=== PATIENT | female | born 1985 | race Caucasian/White ===

== ENCOUNTER 2021-03-22 21:08 | Emergency (ER) | payer MEDICAID, SELFPAY ==
[2021-03-22 21:17] VITALS: BP 110/68; PULSE 106; RESP 18; TEMP 37.4; O2SAT 96; BMI 28.3
[2021-03-22 21:44] LABS: Add Urine Microscopic? NO; Charge for UA Resulting for Rev
[2021-03-22 21:53] LABS: Bilirubin Urine Neg (Negative); Blood Urine Neg (Negative); Glucose Urine UA Norm (Normal); Ketones Urine Negative (Negative); Leukocyte Esterase Urine Negative (Negative); Nitrate Urine Negative (Negative); Protein Urine Neg (Negative); Urine Appearance Clear (CLEAR); Urine Color Yellow (Yellow); Urobilinogen Urine Neg (Negative); pH Urine 5 (5-7)
[2021-03-22 23:24] LABS: Basophils % 0.3 %; Eosinophils # 0.2 10^3/uL (0.0-0.8); Eosinophils % 1.9 %; Hematocrit 43.3 % (37.0-47.0); Hemoglobin 14.6 g/dL (11.5-15.3); Lymphocytes # 1.4 10^3/uL (0.8-4.8); Lymphocytes % 13.6 %; Mean Corpuscular HGB Conc 33.7 g/dL (30.0-36.0); Mean Corpuscular Hemoglobin 31.6 pg (28.0-34.0); Mean Corpuscular Volume 93.7 fl (81-99); Mean Platelet Volume 10.3 fL (7.4-10.4); Monocytes # 0.7 10^3/uL (0.2-0.9); Monocytes % 6.3 %; Neutrophils # 7.92 10^3/uL (1.8-7.7); Neutrophils % 77.2 %; Nucleated Red Blood Cells % 0 %; Platelet Count 331 10^3/cmm (130-400); Red Blood Count 4.62 10^6/uL (4.1-5.3); Red Cell Distribution Width 12.1 % (12.1-15.1); White Blood Count 10.3 10^3/uL (4.0-10.0)
[2021-03-22 23:39] LABS: HCG, Serum Qual Negative (Negative)
[2021-03-22 23:48] LABS: Alanine Aminotransferase 14 U/L (0-33); Albumin Level 4.2 g/dL (3.5-5.2); Alkaline Phosphatase 51 IU/L (35-105); Anion Gap 16.8 (5-19); Aspartate Amino Transferase 12 U/L (0-32); Blood Urea Nitrogen 9 mg/dL (6-20); Calcium 8.4 mg/dL (8.5-10.5); Carbon Dioxide 21 mmol/L (22-29); Chloride 102 mmol/L (98-107); Creatinine Clr Calc Pharmacy 156.6486; Globulin 2.4 g/dL (1.3-4.6); Glomerular Filtration Rate 138.1 mL/min (90-130); Glucose 90 mg/dL (65-115); Lipase 40 U/L (13-60); Osmolality Calculated 280 mOsm/kg (285-295); Potassium 3.8 mmol/L (3.5-5.1); Sodium 136 mmol/L (136-145); Total Bilirubin 0.6 mg/dL (0.15-1.2); Total Protein 6.6 g/dL (6.6-8.7)
--- NOTE | 2021-03-22 23:50 | W.ED.ABDPA2 ---
HPI - Abdominal Pain General: Chief Complaint: Abdominal Pain Stated Complaint: ABD PAIN Time Seen by Provider: 03/22/21 22:32 Source: patient Mode of arrival: ambulatory History of Present Illness: HPI narrative: 36-year-old female states that over the last 2 to 3 days she has been having some right upper quadrant pain especially after eating she states that she ate breakfast [place] this morning at 11 and has had some right upper quadrant pain since then she states it is less and is currently a 4 out of 10 had some nausea no vomiting denies any history of any issues in the past no gallbladder issues in the past denies any fevers. Patient is resting comfortably here. Associated Symptoms: Denies chills, dysuria and fever(s) Related Data: Date of Last Menstrual Period: 02/27/21 Review of Systems Const: Denies: fever(s), chills, body aches or change in appetite Eyes: Denies: blurry vision or eye discomfort ENMT: Denies: throat pain or dental pain Card: Denies: chest pain Resp: Denies: dyspnea GI: Reports: abdominal pain : Denies: dysuria Musc: Denies: neck pain or back pain Skin/Breast: Denies: rash Neuro: Denies: headache(s) Psych: Denies: depression Huber/Lymph: Denies: easy bruising All/Imm: Denies: urticaria [facility] ED Female Reproductive History: Date of last menstrual period: 02/27/21 Physical Exam Const: COMMON NORMALS: no acute distress, patient oriented x3 and healthy appearing HENMT: COMMON NORMALS: normocephalic and atraumatic HEAD & SCALP: normocephalic and atraumatic Eye: COMMON NORMALS: Equal, round and reactive pupils present and EOMs intact bilaterally PUPIL: Yes Equal, round and reactive pupils present Neck/C-Spine: COMMON NORMALS: full ROM and supple Chest: COMMONS NORMALS: normal inspection of the chest and normal palpation of entire chest wall Resp: COMMON NORMALS: normal respiratory effort, No retractions, No use of accessory muscles and clear to auscultation bilaterally AUSCULTATION: clear to auscultation bilaterally Cardio: COMMON NORMALS: regular rate, regular rhythm and No murmurs present (Cardio) RATE: regular rate RHYTHM: regular rhythm GI: COMMON NORMALS: Normal to inspection, nondistended, normoactive bowel sounds present, Soft to palpation and no masses PALPATION: Yes Soft to palpation and Yes Tenderness to palpation present (GI) Details: RUQ Extremity: COMMON NORMALS: normal to inspection and full ROM Neuro: COMMON NORMALS: patient oriented x3, moves all extremities and no focal motor deficits Psych: COMMON NORMALS: mental status grossly normal, Normal thought process present and cooperative THOUGHT PROCESS: Normal thought process present Skin: COMMON NORMALS: no rashes or lesions noted and no wounds GENERAL SKIN EXAM: no rashes or lesions noted Course Vital Signs: Vital signs: Vital Signs Temperature 99.4 F 03/22/21 21:17 Pulse Rate 91 03/23/21 00:14 Respiratory Rate 18 03/22/21 21:17 Blood Pressure 109/62 03/23/21 00:14 Pulse Oximetry 95 03/23/21 00:14 MDM - Abdominal Pain MDM Narrative: Medical decision making narrative: Patient presents here with biliary colic from likely gallstone she has no signs of cholecystitis or choledocholithiasis. Patient's pain here is resolved exam at discharge benign no right upper quadrant tenderness patient on pain meds here follow-up with surgery she is to eat a bland diet she understands agrees to plan. She is return if she has any worsening pain. Lab Data: Labs: Lab Results 03/22/21 03/22/21 03/22/21 21:22 23:13 23:13 WBC 10.3 10^3/uL H 10 ^3/uL (4.0-10.0) RBC 4.62 10^6/uL 10^6 /uL (4.1-5.3) Hgb 14.6 g/dL g/dL (11.5-15.3) Hct 43.3 % % (37.0-47.0) MCV 93.7 fl fl (81-99) MCH 31.6 pg pg (28.0-34.0) MCHC 33.7 g/dL g/dL (30.0-36.0) RDW 12.1 % % (12.1-15.1) Plt Count 331 10^3/cmm 10^3 /cmm (130-400) MPV 10.3 fL fL (7.4-10.4) Neut % (Auto) 77.2 % % Lymph % (Auto) 13.6 % % Tate % (Auto) 6.3 % % Eos % (Auto) 1.9 % % Baso % (Auto) 0.3 % % Neut # (Auto) 7.92 10^3/uL H 10 ^3/uL (1.8-7.7) Lymph # (Auto) 1.4 10^3/uL 10^3/ uL (0.8-4.8) Tate # (Auto) 0.7 10^3/uL 10^3/ uL (0.2-0.9) Eos # (Auto) 0.2 10^3/uL 10^3/ uL (0.0-0.8) Baso # (Auto) 0.0 10^3/uL 10^3/ uL (0.0-0.1) Nucleated RBC % (a uto) 0 % % Nucleated RBCs # 0.0 /100WBC /100W BC Sodium 136 mmol/L mmol/L (136-145) Potassium 3.8 mmol/L mmol/L (3.5-5.1) Chloride 102 mmol/L mmol/L (98-107) Carbon Dioxide 21 mmol/L L mmol/ L (22-29) Anion Gap 16.8 (5-19) BUN 9 mg/dL mg/dL (6-20) Creatinine 0.5 mg/dL mg/dL (0.5-0.9) GFR Calculation 138.1 mL/min H mL /min (90-130) Glucose 90 mg/dL mg/dL (65-115) Calculated Osmolal ity 280 mOsm/kg L mOs m/kg (285-295) Calcium 8.4 mg/dL L mg/dL (8.5-10.5) Total Bilirubin 0.6 mg/dL mg/dL (0.15-1.2) AST 12 U/L U/L (0-32) ALT 14 U/L U/L (0-33) Alkaline Phosphata se 51 IU/L IU/L (35-105) Total Protein 6.6 g/dL g/dL (6.6-8.7) Albumin 4.2 g/dL g/dL (3.5-5.2) Globulin 2.4 g/dL g/dL (1.3-4.6) Lipase 40 U/L U/L (13-60) HCG, Qual Urine Color Yellow (Yellow) Urine Appearance Clear (CLEAR) Urine pH 5 (5-7) Ur Specific Gravit y 1.010 (1.005-1.030) Urine Protein Neg (Negative) Urine Glucose (UA) Norm (Normal) Urine Ketones Negative (Negative) Urine Blood Neg (Negative) Urine Nitrate Negative (Negative) Urine Bilirubin Neg (Negative) Urine Urobilinogen Neg mg/dL mg/dL (Negative) Ur Leukocyte Yana ase Negative (Negative) 03/22/21 23:13 WBC RBC Hgb Hct MCV MCH MCHC RDW Plt Count MPV Neut % (Auto) Lymph % (Auto) Tate % (Auto) Eos % (Auto) Baso % (Auto) Neut # (Auto) Lymph # (Auto) Tate # (Auto) Eos # (Auto) Baso # (Auto) Nucleated RBC % (a uto) Nucleated RBCs # Sodium Potassium Chloride Carbon Dioxide Anion Gap BUN Creatinine GFR Calculation Glucose Calculated Osmolal ity Calcium Total Bilirubin AST ALT Alkaline Phosphata se Total Protein Albumin Globulin Lipase HCG, Qual Negative (Negative) Urine Color Urine Appearance Urine pH Ur Specific Gravit y Urine Protein Urine Glucose (UA) Urine Ketones Urine Blood Urine Nitrate Urine Bilirubin Urine Urobilinogen Ur Leukocyte Yana ase Imaging Data ^: US: Attestation: I personally reviewed and interpreted this imaging study as follows: My impression: Cholelithiasis with no signs of cholecystitis common bile duct normal Discharge Plan Discharge Patient Disposition: Home Clinical Impression: Cholelithiasis Qualifiers: Cholelithiasis location: gallbladder Cholecystitis presence: without cholecystitis Biliary obstruction: without biliary obstruction Qualified Code(s): K80.20 - Calculus of gallbladder without cholecystitis without obstruction Condition: Stable Prescriptions: New hydrocodone-acetaminophen 5-325 mg tablet 1 tab PO Q6H PRN (Reason: pain) Qty: 14 RF: 0 ondansetron 4 mg tablet,disintegrating 4 mg PO Q6H PRN (Reason: nausea and vomiting) Qty: 14 RF: 0 Discharge Orders: Discharge ED (Routine); Ordered 03/23/21 Ordered By: Anju Donnelly Referrals: Brenden Pino MD [Physician] - 1-3 days Discharge Diet: Advance as tolerated Discharge Activity: Resume usual activity Patient Instructions: Biliary Colic (ED), Gallstones (ED), Opioid Safety Coding Level of Care Code ED Assistant Hall Director for Chg Fwd Exam Comprehensive
[2021-03-23] MEDS: ondansetron 2 mg/ML SDV 2 mL 4 MG IVP (00:04)
[2021-03-23] MEDS: morphine 4 mg/mL SDV 1 mL IVP (00:04)
[2021-03-23] MEDS: tetanus-dipt-pertussis 0.5 mL SDV IM (00:13)
[2021-03-23 00:14] VITALS: BP 109/62; PULSE 91; O2SAT 95
[2021-03-23 01:11] VITALS: BP 102/53; PULSE 71; RESP 16; O2SAT 96
--- NOTE | 2021-03-23 23:48 | USR_ITS ---
PROCEDURE INFORMATION: Exam: US Abdomen, Limited; Right Upper Quadrant Exam date and time: 03/23/2021 11:48 PM Age: 36 years old Clinical indication: Abdominal pain; Additional info: Ruq pain TECHNIQUE: Imaging protocol: US abdomen. Real time ultrasound with image documentation. Limited exam focused on the right upper quadrant. COMPARISON: No relevant prior studies available. FINDINGS: Liver: Essentially unremarkable liver, no focal abnormality. Gallbladder: A 14 mm shadowing gallstone is visible within the gallbladder. No gallbladder wall thickening or pericholecystic fluid. The gallbladder does not appear abnormally distended at this time. Common bile duct: No biliary dilation, common duct measures 3.7 mm. Pancreas: Visible pancreas unremarkable. Right kidney: Images of the right kidney show no hydronephrosis. US/US gall bladder 64128 IMPRESSION: 1. Cholelithiasis, see additional details above. 2. No biliary tree dilation. 3. Other findings discussed above.
--- NOTE | 2021-03-24 11:46 | DCPLANNER ---
manager entry had message to schedule a follow up appointment for patient with general surgery. manager entry emailed patients information to Greer at [facility] General Surgery / ENT clinic. Patients information will be printed and reviewed. Clinic will call patient with appointment information.
--- NOTE | 2021-03-25 08:23 | DCPLANNER ---
Addendum entered by Evi Martinez 05/06/21 15:42: Patient had a follow up appointment scheduled for 04.13.21 with general surgery - patient did attend appointment. Original Note: Patient has a follow up appointment scheduled for Tuesday, April 13, 2021 at 8:[address] Pino at General Surgery. Clinic will call patient with appointment information.
== END 2021-03-23 01:12 | disposition home or self-care (01) ==
PROVIDERS: Emergency Provider Emergency Medicine
DX: K80.20 Calculus of gallbladder without cholecystitis without obstruction (principal); Z23 Encounter for immunization
CPT/HCPCS: 36415; 76705; 80053; 81003; 83690; 84703; 85025; 90471; 90715; 96374; 96375; 99284; J2270; J2405

== ENCOUNTER → 2021-04-13 09:34 | Outpatient (BNVA) | payer MEDICAID, SELFPAY | PROVIDERS: Visit Provider Surgery | DX: Z11.52 Encounter for screening for COVID-19 (principal); Z20.822 Contact with and (suspected) exposure to COVID-19 | CPT/HCPCS: 87635 ==

== ENCOUNTER 2021-04-19 08:31 | Day surgery (SDC) | payer MEDICAID, SELFPAY ==
[2021-04-18 13:09] VITALS: BMI 28.3
[2021-04-19] VITALS (19 sets, daily range): BP systolic 94–121; BP diastolic 67–82; PULSE 60–97; RESP 12–24; TEMP 36.3–37.1; O2SAT 91–99
[2021-04-19] MEDS: sodium chloride 0.9% 1,000 ML 30 ML IV (09:19)
[2021-04-19] MEDS: acetaminophen 1,000 MG/100 ML PIGGYBACK 400 MG IV (09:19)
--- NOTE | 2021-04-19 09:48 | W.PM.OPSUD ---
Surgery/Procedure H&P Update DATE OF PROCEDURE: April 19, 2021 DATE H&P PERFORMED: 04/13/20 H&P UPDATE INFORMATION: I have reviewed H&P completed within last 30 days, I have examined patient prior to procedure and No changes to prior documentation PREOP DIAGNOSIS: Symptomatic cholelithiasis and diarrhea PRIMARY INDICATION FOR PROCEDURE: The same PLANNED PROCEDURE: Operation Date: 04/19/21 09:50 Proposed Procedures p Laparoscopic Cholecystectomy 56503; k82.9(Not Applicable) - Brenden Pino MD s EGD(Not Applicable) - Brenden Pino MD
--- NOTE | 2021-04-19 09:48 | ANES.PREANE2 ---
Pre-Anesthetic Assessment Pre-Anesthetic Assessment: Height/Weight: Height 1.65 m Weight 77.111 kg Temp Pulse Resp BP Pulse Ox 98.3 F 93 16 112/75 97 04/19/21 08:44 04/19/21 08:44 04/19/21 08:44 04/19/21 08:44 04/19/21 08:44 Preop Diagnosis: Symptomatic cholelithiasis and diarrhea Proposed Procedure: Operation Date: 04/19/21 09:50 Proposed Procedures p Laparoscopic Cholecystectomy 87770; k82.9(Not Applicable) - Brenden Pino MD s EGD(Not Applicable) - Brenden Pino MD Familial anesthetic complications: None Was Beta Lisa taken within 24 hours: N/A Last intake: Intake Last Liquid Date 04/18/21 Last Liquid Time 22:00 Last Solid Date 04/18/21 Last Solid Time 22:00 Social: Social History: Tobacco Exam: Pre-Anes Outpt Exam: alert, oriented x 3, clear to auscultation bilaterally and regular rate & rhythm Airway: Submandibular: WNL Cervical ROM: WNL MP: 2 Dentition: Full History/ROS: No significant history except as noted Pulmonary: Pulmonary: None reported CV/HEM: CV/HEM: None reported : : None reported GI: GI: GERD Comments: Cholelithiasis Metabolic: Metabolic: None reported Musc/skel: Musc/skel: None reported Neuropsych: Neuropsych: None reported Anesthetic Plan: ASA status: 2 Anesthesia: Anesthesia Evaluation and General Other: I discussed risk benefits of GETA. Patient desire to quit smoking. I conducted a brief goal based tobacco cessation intervention with the patient. Risk of > 500 ml blood loss (7ml/kg in children): No Other Pertinent Information: Very anxious today. Meds/Allergies Current Medications: Current Medications Generic Name Dose Route Start Last Admin Trade Name Freq PRN Reason Stop Dose Admin Sodium Chloride 1,000 mls @ 30 ml s/hr 04/19/21 08:45 04/19/21 09:19 Sodium Chloride 0.9% IV 04/20/21 08:44 30 mls/hr .Q24H CASSIE Administration PFSH Anesthesia PFSH: Family History Other CAD (coronary artery disease) Cancer Dementia Diabetes Lung disease Stroke Denies family history of Chronic kidney disease (CKD) Social History Smoking and tobacco status: current every day smoker Alcohol intake: current Alcohol intake frequency: few times a week Lives independently: Yes Household members: children Female Reproductive History: Date of last menstrual period: 05/03/20 Data Anesthesia Cardiac Studies: No Data to Display
[2021-04-19] MEDS: scopolamine 1.5 Patch 1 PATCH TRANSDERMA (09:55)
[2021-04-19] MEDS: ampicillin-sulbactam 3 GM in sodium chloride 0.9% (plus) 50 ML IV (10:11)
[2021-04-19] MEDS: lidocaine 2% INJ 20 mL INJECTION (10:42)
--- NOTE | 2021-04-19 11:23 | P.OP_ITS ---
Operative Report Date of procedure: April 19, 2021 Pre-op Diagnosis: Symptomatic cholelithiasis and diarrhea Post-op diagnosis: same Procedure Done: 1-Laparoscopic cholecystectomy 2-Intraoperative esophagogastroduodenoscopy Implants: 2 pieces of Surgicel in the gallbladder fossa Specimens removed/disposition: Gallbladder and contents Surgeon: Brenedn Pino [place] Administrator: Fibrous Wallboard Inspector Jose Manuel Sánchez and Leonid mooney Mason and Meena Anesthesia: General (ANGELINA Cano) IV fluids (mL): 1,000 Complications: No immediate complication Condition: stable Disposition: same day Procedure: Patient was identified in the holding area and taken back to the operative suite, placed in supine position intubated by anesthesia. Time-out was done verifying the patient's name/date of /planned procedure and destination after the procedure, all were in agreement. SCDs confirmed to be functioning, preoperative antibiotics administered per protocol, and beta eryn protocol was confirmed. Patient was appropriately secured to the table, footboard was applied to the OR table, before prep and drape anesthesia was asked to tilt the table back and forth to make sure that the patient is appropriately secured and she was. Prep and drape of the abdomen was done under the usual sterile technique, followed by that supraumbilical skin incision,skin incision was done by a 15 blade knife, and stay sutures were applied to the fascia and Campos trocar technique was used to enter the abdominal without injuring any abdominal viscera, started by low flow gas insufflation followed by a high flow, started with a 10 mm laparoscope and under direct vision there was no evidence of any injuries, the scope then switched to a 30? ,10 millimeter scope and under direct visualization 5 millimeter trocar was inserted in the epigastric region followed by two 5 mm trocars were inserted in the right upper quadrant that was done after injection of local lidocaine 2% at all incision sites. Gallbladder showed chronic cholecystitis and Fatty Liver Patient was then positioned in the head up and tilted to the left. Ratcheted forceps were introduced into the lateral most 5mm port and was applied unto the fundus of the gallbladder cephalad and using Bullet forceps the infundibulum of the gallbladder was retracted laterally. Using [place] forceps then L-hook cautery to dissect the peritoneum overlying the Calot's triangle which was then opened medially and laterally until the cystic duct and the cystic artery were skeletonized. Dissection was carried along the body of the gallbladder and after ensuring critical view of safety was identfied. Cystic duct and cystic artery where seen connected to the gallbladder. Clips were applied on the cystic duct towards the common bile duct 1 towards the gallbladder then divided is in sharp scissors, 2 clips were then applied onto the cystic artery and 1 towards the gallbladder and divided by sharp scissors. There was an additional vessel that was clipped and divided Dissection was then carried along of the gallbladder from the gallbladder fossa using cautery as well as sharp dissection with heat energy. The gallbladder then was dissected out from the gallbladder fossa totally , cholecystectomy was then achieved and was placed in an Endo Catch bag and then retrieved from the Campos trocar site under direct visualization using a 5 mm 30? scope through the epigastric trocar, specimen was then passed to the circulating nurse to go for permanent pathology,irrigation and hemostasis was done to the gallbladder fossa after hemostasis was secured by 2 pieces of Surgicel at the gallbladder fossa, a survey laparoscopy was done that showed no injuries. Suction irrigation was obtained. While the patient is still under anesthesia ,I scrubbed out and started introducing the EGD via the mouth under direct visualization.I was able to assess the esophagus stomach and duodenum till the second part, mild GERD was noticed at the GE junction in addition to a hiatal hernia. GE junction at 40 cm from the incisors, with mild GERD the remaining of the examination was unremarkable. The scope was retrieved under direct visualization and gas was deflated,no biopsies were obtained at that point. The procedure was done under the laparo endoscopic view Afterwards I scrubbed back in.The supraumbilical fascial defect was then closed using interrupted number one PDS sutures using a fascial closure device ;Krishna Avila under direct visualization.A final Survery Laproscopy showed no evience of injuries or bleeding. Following that Gas was allowed to deflate,Trocars were then taken out under direct vision there was no evidence of bleeding. Specimen was passed to the circulating nurse for permanent pathology. No drains were placed and the supraumbilical incision as well as all trocar sites were closed by 3/0 Vicryl followed by 4-0 Monocryl to approximate the skin edges of the incisions , dressing was applied in the form of surical glue and the patient patient got extubated and was taken to recovery area in a stable condition. Count of sponges,needles and instruments were completed at the end of the procedure I was present for the whole entire procedure.
[2021-04-19] MEDS: fentaNYL 50 mcg/mL INJ 2mL IVP ×2 (11:54→12:02)
[2021-04-19] MEDS: HYDROmorphone 1 mg/mL INJ 1 mL 0.5 MG IVP (12:28)
[2021-04-19 12:31] LABS: OR HCG Qualitative Urine Negative (Negative)
[2021-04-19] MEDS: HYDROcodone-acetaminophen 5-325 mg Tablet 1 TAB PO (12:54)
--- NOTE | 2021-04-19 15:38 | ANE.PACU2 ---
Inpatient post-anesthesia follow up: Airway intact: Yes Vital signs: Temperature 98.8 F Pulse Rate 76 Respiratory Rate 16 Blood Pressure 94/78 Pulse Oximetry 95 Oxygen Delivery Me thod Room Air Oxygen Flow Rate 4 Fraction of Inspir ed Oxygen Hydration adequate: Yes Nausea and vomiting: No Pain level: 5 Mental status: Baseline
== END 2021-04-19 13:57 | disposition home or self-care (01) ==
PROVIDERS: Anesthesiology; Visit Provider Surgery
PROC: 0FT44ZZ Resection of Gallbladder, Percutaneous Endoscopic Approach (ICD-10-PCS; CPT 47562; principal; 2021-04-19 09:40)
PROC: 0DJ08ZZ Inspection of Upper Intestinal Tract, Via Natural or Artificial Opening Endoscopic (ICD-10-PCS; CPT 43235; 2021-04-19 09:40)
DX: K80.10 Calculus of gallbladder with chronic cholecystitis without obstruction (principal); K21.9 Gastro-esophageal reflux disease without esophagitis; K44.9 Diaphragmatic hernia without obstruction or gangrene; Z82.49 Family history of ischemic heart disease and other diseases of the circulatory system; Z82.3 Family history of stroke; Z83.3 Family history of diabetes mellitus; F17.210 Nicotine dependence, cigarettes, uncomplicated
CPT/HCPCS: 43235; 47562; 81025; 84703; 88304; J0295; J1100; J1170; J2001; J2250; J2405; J2704; J2710; J3010; J3490; J7030

== ENCOUNTER 2021-08-11 08:27 | Day surgery (SDC) | payer MEDICAID, SELFPAY ==
[2021-08-09 09:43] VITALS: BMI 27.4
[2021-08-11 08:39] VITALS: BP 113/67; PULSE 70; RESP 18; TEMP 36.2; O2SAT 98
--- NOTE | 2021-08-11 08:54 | P.ANESASSM_ITS ---
Pre-Anesthetic Assessment Height/Weight: Height 1.65 m Weight 74.843 kg Temp Pulse Resp BP Pulse Ox 97.2 F L 70 18 113/67 98 08/11/21 08:39 08/11/21 08:39 08/11/21 08:39 08/11/21 08:39 08/11/21 08:39 Preop Diagnosis: Bloody diarrhea Operation Date: 08/11/21 10:00 Proposed Procedures p Colonoscopy 46422/change in bowl habit R19.4/K92.1(Not Applicable) - Brenden Pino MD Familial anesthetic complications: little hard to wake up Was Beta Lisa taken within 24 hours: N/A Was Clonidine taken within 24 hours: N/A Last intake: Intake Last Liquid Date 08/10/21 Last Liquid Time 23:00 Last Solid Date 08/09/21 Last Solid Time 20:00 Social Tobacco and No alcohol Exam alert, oriented x 3, clear to auscultation bilaterally and regular rate & rhythm Airway Mallampati: Class III Dentition: chipped Pulmonary None reported CV/HEM patient states she has heart murmur from a leaky valve - able to achieve 4 METS, has had no symptoms None reported Hepatic None reported GI Gastroesophageal Reflux Disease Metabolic None reported Musc/skel None reported Neuropsych None reported Anesthetic Plan ASA status: 2 Anesthesia: MAC Risk of > 500 ml blood loss (7ml/kg in children): No Medications/Allergies Home Medications Medication Instructions Recorded Confirmed Last Taken Type hydroxyzine HCl 25 mg tablet 25 mg PO PRN PRN 04/19/21 08/11/21 08/09/21 History pantoprazole 40 mg tablet,delayed 40 mg PO DAILY 30 Days #30 tab 04/19/2108/09/21 Rx release (Protonix) cyclobenzaprine 10 mg tablet 10 mg PO TID PRN #20 tab 05/04/21 08/11/21 08/06/21 Rx etonogestrel 0.12 mg-ethinyl 1 vag ring VAGINAL DIRECTED 08/09/21 08/09/21 08/05/21 History estradiol 0.015 mg/24 hr vaginal ring (NuvaRing) magnesium 500 mg tablet 500 mg PO DAILY 08/09/21 08/11/21 08/09/21 History zinc 50 mg capsule 50 mg PO DAILY 05/06/2808/11/21 08/09/21 History Probiotic PO DAILY 08/11/21 08/09/21 History Allergies Allergy/AdvReac Type Severity Reaction Status Date / Time hydrocodone Allergy Severe itching, Verified 08/11/21 08:49 hives mushroom Allergy ALGY-Anaphy Verified 08/11/21 08:49 laxis [facility] Anesthesia Medical History (Updated 06/17/21 @ 13:00 by Brenden Pino MD) Acid reflux Cholelithiasis Postop check Family History Other CAD (coronary artery disease) Cancer Dementia Diabetes Lung disease Stroke Denies family history of Chronic kidney disease (CKD) Social History Smoking and tobacco status: current every day smoker Alcohol intake: current Alcohol intake frequency: few times a week Lives independently: Yes Household members: children Female Reproductive History Date of last menstrual period: 05/03/20 Data Anesthesia Cardiac Studies: No Data to Display
[2021-08-11] MEDS: sodium chloride 0.9% 1,000 ML 30 ML IV (09:09)
[2021-08-11 09:15] LABS: OR HCG Qualitative Urine Negative (Negative)
--- NOTE | 2021-08-11 10:35 | W.PM.OPSFHP ---
Same Day Surgery H&P Indication for Procedure/HPI DATE OF PROCEDURE: August 11, 2021 CHIEF COMPLAINT/INDICATIONFOR SURGICAL PROCEDURE: Blood in stool with diarrhea PREOP DIAGNOSIS: Bloody diarrhea PLANNED PROCEDURE: Operation Date: 08/11/21 10:00 Proposed Procedures p Colonoscopy 66049/change in bowl habit R19.4/K92.1(Not Applicable) - Brenden Pino MD This is a pleasant 36 years old female patient comes today with bloody diarrhea ROS All systems have been reviewed negative except as for the above or per problem list. Medications/Allergies* Home Medications Medication Instructions Recorded Confirmed Type hydroxyzine HCl 25 mg tablet 25 mg PO PRN PRN 04/19/21 08/11/21 History etonogestrel 0.12 mg-ethinyl 1 vag ring VAGINAL DIRECTED 08/09/21 08/09/21 History estradiol 0.015 mg/24 hr vaginal ring (NuvaRing) magnesium 500 mg tablet 500 mg PO DAILY 08/09/21 08/11/21 History zinc 50 mg capsule 50 mg PO DAILY 08/09/21 08/11/21 History Probiotic PO DAILY 08/11/21 History Allergies/Adverse Reactions Allergy/AdvReac Type Severity Reaction Status Date / Time hydrocodone Allergy Severe itching, Verified 08/11/21 10:36 hives mushroom Allergy ALGY-Anaphy Verified 08/11/21 10:36 laxis Current Medications: Generic Name Dose Route Start Last Admin Trade Name Freq PRN Reason Stop Dose Admin Sodium Chloride 1,000 mls @ 30 mls/hr 08/11/21 08:45 08/11/21 09:09 Sodium Chloride 0.9% IV 08/12/21 08:44 30 mls/hr .Q24H CASSIE Administration Pertinent History/Comorbid Conditions* Medical History (Updated 06/17/21 @ 13:00 by Brenden Pino MD) Acid reflux Cholelithiasis Postop check Family History (Updated 04/13/21 @ 09:08 by Taylor Winter) Diabetes CAD (coronary artery disease) Dementia Lung disease Cancer Stroke Denies family history of Chronic kidney disease (CKD) Social History Smoking and tobacco status: current every day smoker Alcohol intake: current Alcohol intake frequency: few times a week Lives independently: Yes Household members: children Pertinent Exam Findings alert, oriented x 3, regular rate & rhythm and procedure specific exam findings (Abdominal exam nontender nondistended soft) Recommendations Surgery/Procedure today (Colonoscopy with possible biopsy) Coding Level of Care Code Acute Power Transmission Engineer for Cathi Maria
[2021-08-11 11:24] VITALS: BP 114/69; PULSE 75; RESP 20; TEMP 36.6; O2SAT 97
[2021-08-11 11:32] VITALS: BP 109/76; PULSE 67; RESP 18; O2SAT 100
== END 2021-08-11 11:49 | disposition home or self-care (01) ==
PROVIDERS: Anesthesiology; Visit Provider Surgery
PROC: 0DJD8ZZ Inspection of Lower Intestinal Tract, Via Natural or Artificial Opening Endoscopic (ICD-10-PCS; CPT 45378; principal; 2021-08-11 10:00)
DX: K92.1 Melena (principal); D12.4 Benign neoplasm of descending colon; K21.9 Gastro-esophageal reflux disease without esophagitis; F17.210 Nicotine dependence, cigarettes, uncomplicated
CPT/HCPCS: 45380; 82274; 83630; 84703; 87493; 87506; 88305; J2704; J7030

== ENCOUNTER → 2021-08-18 15:39 | Outpatient (BNVA) | payer MEDICAID, SELFPAY | PROVIDERS: Visit Provider Surgery | DX: Z09 Encounter for follow-up examination after completed treatment for conditions other than malignant neoplasm (principal); K63.5 Polyp of colon | CPT/HCPCS: 99213 ==

== ENCOUNTER 2022-04-26 08:14 | Outpatient (CLI) | payer MEDICAID, SELFPAY ==
--- NOTE | 2022-04-26 | CT_ITS ---
WS: [id number] CT ABDOMEN AND PELVIS WITH CONTRAST HISTORY: Left-sided abdominal pain. Pain off and on for one year. TECHNIQUE: Imaging performed of the abdomen and pelvis with IV contrast. Single phase imaging of the abdomen. Coronal and sagittal reformats are submitted. All CT scans at [facility] use at [address] one of these dose optimization techniques: automated exposure control; mA and/or kV adjustment per patient size (includes targeted exams where dose is matched to clinical indication); or iterative re construction. IV CONTRAST: Omnipaque 350; 95 mL IV. Oral contrast: Yes. DLP: 689 mGy-cm. COMPARISON: No similar studies. Lower thorax: Lung bases are clear. Heart is normal size. No hiatal hernia. Liver/biliary system: Normal size with no intrahepatic dilatation. Gallbladder: Status post cholecystectomy. Pancreas: Normal size pancreas and pancreatic duct. No adjacent inflammation. Spleen: Normal size spleen. No mass or infarct. Adrenal glands: Normal. Right kidney: Normal. Left kidney: Normal. Aorta: Normal. Lymphadenopathy: None. Free fluid: None. GI tract: Normal stomach. No small bowel obstruction. The appendix is not identified. No secondary fi ndings of appendicitis. No diverticulosis. Abdominal wall: Fat-containing ventral abdominal wall hernia. Pelvis: No free fluid or adenopathy. Uterus is anteverted. Both ovaries are identified. Small follicl e LEFT ovary measures 2.1 cm. Bones: Mild disc space narrowing at L5-S1. CT/CT abdomen pelvis w con* [id number] IMPRESSION: 1. No acute abdominal or pelvic abnormalities. 2. Prior cholecystectomy. 3. No adenopathy or ascites. 4. The appendix is not identified but no secondary findings of appendicitis.
--- NOTE | 2022-04-26 08:21 | CT_ITS ---
WS: [id number] CT HEAD TECHNIQUE: Noncontrast and contrast-enhanced CT of the head. CLINICAL INFORMATION: RECURRENT HEADACHE COMPARISON: None. DLP: 3286.[address] scans at [facility] use at least one of these dose optimization techniques: automated e xposure control; mA and/or kV adjustment per patient size (includes targeted exams where dose is matc hed to clinical indication); or iterative reconstruction. FINDINGS: No evidence of intracranial hemorrhage or mass effect. Ventricular system and basal cisterns are patel nt. Normal chakraborty-white differentiation. No hydrocephalus. No extra-axial fluid collections. No abnormal intracranial enhancement. Mastoid air cells and paranasal sinuses are well aerated. Keila l posterior nasopharynx. Normal parapharyngeal fat. CT/CT head wo/w con [id number] IMPRESSION: 1. No evidence of intracranial hemorrhage or mass effect. 2. No abnormal intracranial enhancement. 3. No acute intracranial findings.
[2022-04-26] MEDS: iohexol 350 mg/mL 500 mL Btl (per mL) IV (10:36)
[2022-04-26] MEDS: iohexol 350 mg/mL 500 mL Btl (per mL) PO (10:45)
== END 2022-04-26 08:15 | disposition home or self-care (01) ==
PROVIDERS: PCP Family Medicine; Visit Provider Family Medicine
DX: R10.9 Unspecified abdominal pain (principal); R51.9 Headache, unspecified
CPT/HCPCS: 70470; 74177; Q0163; Q9967

== ENCOUNTER 2022-04-26 10:28 | Emergency (ER) | payer MEDICAID, SELFPAY ==
[2022-04-26 10:31] VITALS: BP 120/86; PULSE 71; RESP 16; TEMP 36.9; O2SAT 97; BMI 29.1
--- NOTE | 2022-04-26 10:34 | W.ED.ALLEREA ---
HPI - Allergic Reaction General: Chief complaint: Allergic Reaction Stated complaint: Allergic Reaction Time Seen by Provider: 04/26/22 10:33 Source: patient Mode of arrival: ambulatory Limitations: no limitations History of Present Illness: HPI narrative: Patient is a 37-year-old female who presents to ED today with a possible allergic reaction following IV contrast abdominal CT scan. Patient states she was having a CT scan performed as an outpatient. Following the scan she began developing throat itching and the sensation that her tongue/mouth was swelling so was brought to the ED for further evaluation. Patient states she has had IV contrast previously without allergic reaction. MD complaint: allergic reaction Onset (ago): hour(s) Exposure: other (possible IV contrast) Associated symptoms: Deny nausea or vomiting Severity: mild Treatment prior to arrival: none Previous Allergic Reaction History: none Review of Systems Const: Denies: fever(s) Eyes: Denies: change in vision ENMT: Reports: other (throat itching, feeling like it is swelling); Denies: throat pain or odynophagia Card: Denies: chest pain, palpitations, lightheadedness, syncope or pre-syncope Resp: Denies: dyspnea GI: Denies: nausea or vomiting Skin/Breast: Denies: rash Neuro: Denies: headache(s) PFSH ED PFSH: Medical History Acid reflux Cholelithiasis Colon polyp Postop check Family History Other CAD (coronary artery disease) Cancer Dementia Diabetes Lung disease Stroke Denies family history of Chronic kidney disease (CKD) Social History Smoking and tobacco status: current every day smoker Alcohol intake: current Alcohol intake frequency: few times a week Lives independently: Yes Household members: children Female Reproductive History: Date of last menstrual period: 05/03/20 Physical Exam Const: COMMON NORMALS: no acute distress, average body habitus, no limitations, healthy appearing, alert and well nourished GENERAL APPEARANCE: cooperative ORIENTATION/CONSCIOUSNESS: Yes awake, Yes oriented to person, Yes oriented to place and Yes oriented to time HENMT: COMMON NORMALS: normocephalic and atraumatic HEAD & SCALP: normal to inspection, normocephalic and atraumatic FACE & SINUS: normal facial exam MOUTH: Normal oral and palatal mucosa present, lip normal and tongue normal THROAT: posterior oropharynx normal, tonsils normal, uvula midline and other (no angioedema) Eye: GENERAL EYE: appearance normal, both eyes and all related structures Neck/C-Spine: GENERAL: Yes normal visual inspection, No anterior neck swelling and No submandibular swelling Resp: COMMON NORMALS: normal respiratory effort and clear to auscultation bilaterally AUSCULTATION: clear to auscultation bilaterally Cardio: COMMON NORMALS: regular rate and regular rhythm RATE: regular rate RHYTHM: regular rhythm Neuro: GIA COMA SCALE: document GCS findings Gai coma scale eye opening: Spontaneous Brush coma scale verbal response: Orientated Gia coma scale motor response: Obey commands Brush coma scale total score: 15 COMMON NORMALS: CN's II-XII intact bilaterally, moves all extremities, no focal motor deficits and no sensory deficits noted SENSORIUM/ORIENTATION: Yes alert, Yes oriented to person, Yes oriented to place and Yes oriented to time Skin: COMMON NORMALS: no rashes or lesions noted GENERAL SKIN EXAM: no rashes or lesions noted Course Vital Signs: Vital signs: Vital Signs Temperature 98.4 F 04/26/22 10:31 Pulse Rate 71 04/26/22 10:31 Respiratory Rate 16 04/26/22 10:31 Blood Pressure 120/86 04/26/22 10:31 Pulse Oximetry 97 04/26/22 10:31 Oxygen Delivery Me thod 04/26/22 10:31 MDM - Allergic Reaction Medical Decision Making Patient feeling better after IV Benadryl and Solu-Medrol. States she feels comfortable going home at this time. Return to ED precautions given. Discharge Plan Discharge Patient Disposition: Home Clinical Impression: Allergy to intravenous contrast media Condition: Stable Prescriptions: No Action cyclobenzaprine 10 mg tablet 10 mg PO TID PRN (Reason: muscle spasm) Qty: 20 1RF azithromycin [Zithromax Z-Georgi] 250 mg tablet See Rx Instructions PO .COMPLEX Qty: 6 0RF Rx Instructions: For 250 mg dose pack: take 500 mg today (day 1), then 250 mg for 4 days (days 2-5) PO methylprednisolone [Medrol (Georgi)] 4 mg tablets,dose pack See Rx Instructions PO PER PKG DIR Qty: 21 0RF Rx Instructions: PO PER PKG DIR promethazine-DM 6.25-15 mg/5 mL syrup 5 ml PO Q6H PRN (Reason: cough) Qty: 200 1RF cefdinir 300 mg capsule 300 mg PO Q12H 10 Days Qty: 20 0RF pantoprazole [Protonix] 40 mg tablet,delayed release (DR/EC) 40 mg PO DAILY 30 Days Qty: 30 3RF etonogestrel-ethinyl estradiol [NuvaRing] 0.12-0.015 mg/24 hr Ring 1 vag ring VAGINAL DIRECTED Rx Instructions: replace every 3 weeks zinc 50 mg Capsule 50 mg PO DAILY magnesium 500 mg Tablet 500 mg PO DAILY Probiotic PO DAILY hydroxyzine HCl 25 mg Tablet 25 mg PO PRN PRN (Reason: Anxiety) Discharge Orders: Discharge ED (Routine); Ordered 04/26/22 Ordered By: Brandi Cuadra Referrals: Nikita Coleman MD [Primary Care Provider] - Patient Instructions: Allergic Reaction Coding Level of Care Code ED [employer] [facility] for Cathi Maria
[2022-04-26] MEDS: diphenhydrAMINE 50 mg/mL SDV 1mL IVP (10:50)
[2022-04-26 11:50] VITALS: BP 120/86; PULSE 71; RESP 16; TEMP 36.9; O2SAT 97
== END 2022-04-26 11:58 | disposition home or self-care (01) ==
PROVIDERS: Emergency Provider Physician Assistant; PCP Family Medicine
DX: T78.40XA Allergy, unspecified, initial encounter (principal); T50.8X5A Adverse effect of diagnostic agents, initial encounter; F17.210 Nicotine dependence, cigarettes, uncomplicated
CPT/HCPCS: 96374; 96375; 99284; J1200; J2930